=== PATIENT | female | born 1960 | race American Indian/Alaskan Native ===

== ENCOUNTER 2019-03-05 15:07 | Emergency (ER) | payer BC, OTHER ==
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
[2019-03-05] MEDS ORDERED: FLEXERIL PO ONE (17:15)
[2019-03-05] MEDS ORDERED: CATAPRES PO ONE (17:15)
[2019-03-05] MEDS ORDERED: IBUPROFEN PO ONE (17:15)
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
[2019-03-05 18:26] VITALS: BP 162/102
== END 2019-03-05 18:38 | disposition home or self-care (01) ==
LOC: ED 15:07
DX: R51 Headache (principal); M25.511 Pain in right shoulder; I10 Essential (primary) hypertension; F17.200 Nicotine dependence, unspecified, uncomplicated; Z88.8 Allergy status to other drugs, medicaments and biological substances; V89.2XXA Person injured in unspecified motor-vehicle accident, traffic, initial encounter; Y93.89 Activity, other specified; Y92.488 Other paved roadways as the place of occurrence of the external cause; Y99.8 Other external cause status
CPT/HCPCS: 70450; 99284